=== PATIENT | male | born 1985 ===

== ENCOUNTER → 2023-09-26 12:56 | Outpatient (BNVA) | payer OTHER, SELFPAY | PROVIDERS: PCP Internal Medicine; Referring Provider Physician Assistant; Visit Provider Neurological Surgery ==

== ENCOUNTER 2023-11-16 08:53 | Outpatient (AMB) | payer OTHER, SELFPAY ==
--- NOTE | 2023-11-16 09:13 | HO.SPINEOV ---
Intake Intake Visit Reasons: Lumbar stenosis Intake Note: Mr. Meyers is here today c/o low back pain. MRI done @ [place]/brought disc. [facility] Required: No Assessment & Plan Assessment & Plan (1) Back pain: Code(s): M54.9 - Dorsalgia, unspecified Plan Dear Carl Thank you for referring Mr Meyers to our office today. He is a very nice 38-year-old diabetic gentleman presents to the office today for evaluation of chronic low back pain. Has been going on for 4 years, maybe longer. He gets intermittent sensations of pain down into his calf on both sides. He has gone through physical therapy, chiropractic. No cortisone injections. He takes ibuprofen and Tylenol regularly. Also smokes marijuana to help with the pain daily. It is aggravated with activity but can also be present at nighttime. It is centered in the middle of his lower back in the lumbar region and in the lumbosacral areas. No cauda equina symptoms. Comes in today for evaluation with an MRI showing degenerative disc at L5-S1. PMH: He is recently diagnosed with diabetes a few months ago, his A1c was 10.7 according to the [facility] records. He also has a history of tobacco use, daily smoker. Social hx: Smokes tobacco and marijuana daily, no alcohol Medications: Metformin, Tylenol and ibuprofen Allergies: No known drug allergies Physical exam: Intact strength, gait reflexes Imaging review: Lumbar MRI done at [facility] in 2022 shows normal alignment of the spine, there is a moderately degenerative disc at L5-S1, the report suggests there is clumping of nerve roots, but I do not appreciate this. There is no evidence of any significant central canal stenosis. There is epidural lipomatosis at L5-S1. Impression: 38-year-old male with history of diabetes, presents with low back pain for 4-5 years in the center of his low back, aggravated with activity, occasional radiculopathy down into the legs. He has a moderately degenerative disc at L5-S1. There is no Modic endplate changes and no significant signs of irritation on the STIR sequences. Most of the usual conservative treatments have been trialed and nothing seems to be helping much. We discussed at length the fact that finding the source of back pain can be very difficult and that often degenerative discs seen on MRI can be incidental findings. The surgical treatment for this would be spinal fusion, but the success rates are only about 60-70%. He is very young and his diabetes is uncontrolled, so right now I do not think he would be a good candidate.. I do not get the sense from our conversation that he is quite at the point where he would want surgery. I encouraged him to continue to be active, he has no specific restrictions and he can follow up with us in 6 months. I also told him that it is well-known that uncontrolled diabetes can be a source of inflammation and could also make his back pain worse as well. He is working on getting his blood sugars down and his A1c under control. Thank you for allowing us to care for your patient. The total time spent with this visit with this patient was 45 minutes reviewing history, physical exam, lumbar imaging review, and implementation of treatment plan or further diagnostic testing Unruly Ortiz MD,PhD [facility] Coding Level of Care Code New Pt Level 4 (64562) Diagnoses Back pain M54.9
== END 2023-11-16 09:30 | disposition home or self-care (01) ==
PROVIDERS: PCP Internal Medicine; Referring Provider Physician Assistant; Visit Provider Physician Assistant
DX: M54.9 Dorsalgia, unspecified (principal)
CPT/HCPCS: 99204

== ENCOUNTER → 2023-11-16 08:53 | Outpatient (BNVA) | payer OTHER, SELFPAY | PROVIDERS: PCP Internal Medicine; Visit Provider Physician Assistant | DX: M54.9 Dorsalgia, unspecified (principal) | CPT/HCPCS: 99202 ==

== ENCOUNTER 2024-05-26 13:24 | Outpatient (AMB) | payer OTHER, SELFPAY ==
--- NOTE | 2024-05-26 13:40 | A.SPINEOV_ITS ---
Intake Visit Reasons: 6 month follow up Intake Note: Mr. Meyers is here today for his 6 month F/u. Manager Background Required: No Assessment & Plan Assessment & Plan (1) Back pain: Code(s): M54.9 - Dorsalgia, unspecified Category: Medical Plan Mr Meyers is here in follow up today. I saw him about 6 months ago for his degenerative disc at L5-S1 with left L5 foraminal stenosis. He seems to be about stable in things are for the most part unchanged since I last saw him. He has good days and bad days. Naproxen seems to help quite a bit. We did discuss the natural history of degenerative disc disease and at this point we would try to keep him out of the operating room given that he is so young and the disc at this point is not collapsed enough that I think it needs fusion or replacement. I did remind him to follow up about his A1c because last time he was here it was registered as 10.9. He has not had it checked again since last year. Total amount of time spent in this visit was 20 minutes in discussion of symptoms, lumbar mri imaging results and subsequent plan of care Unruly Ortiz MD,PhD [facility] Coding Level of Care Code Est Pt Level 3 (38242) Diagnoses Back pain M54.9
== END 2024-05-26 13:56 | disposition home or self-care (01) ==
PROVIDERS: PCP Internal Medicine; Visit Provider Physician Assistant
DX: M54.9 Dorsalgia, unspecified (principal)
CPT/HCPCS: 99213

== ENCOUNTER → 2024-05-26 13:24 | Outpatient (BNVA) | payer OTHER, SELFPAY | PROVIDERS: PCP Internal Medicine; Visit Provider Physician Assistant | DX: M54.9 Dorsalgia, unspecified (principal) | CPT/HCPCS: 99212 ==